=== PATIENT | female | born 1950 | race Two or more races ===

== ENCOUNTER 2019-06-12 05:24 | Day surgery (SDC) | payer OTHER ==
[~2019-06-12 05:24] MED LIST: AMLODIPINE PO; CHILDREN'S ASPI81 MG PO; METOPOLOL PO; ZOCOR20 MG PO
== END 2019-06-12 15:45 | disposition home or self-care (01) ==
LOC: CIR.AMB 05:24
DX: N84.0 Polyp of corpus uteri (principal)

== ENCOUNTER 2024-03-06 05:25 | Day surgery (SDC) | payer OTHER ==
[~2024-03-06] VITALS: Ht 152.4 cm; Wt 65.8 kg
[~2024-03-06 05:25] MED LIST changes: +FOSAMAX70 MG PO; +LEUCOVORIN CALC10 MG PO; +METHOTREXATE2.5 MG PO; +PROMETRIUM200 MG PO
[2024-03-06] MEDS ORDERED: POVIDONE-IODINE 118 ML BOTT TOP ONE (07:22)
[2024-03-06] MEDS ORDERED: KETOROLAC TROMETHAMINE 30 MG VIAL IV ONE (08:45)
== END 2024-03-06 15:10 | disposition home or self-care (01) ==
LOC: CIR.AMB 05:25
PROVIDERS: ATTEND Obstetrics & Gynecology
DX: D25.0 Submucous leiomyoma of uterus (principal); N95.0 Postmenopausal bleeding